=== PATIENT | male | born 1980 | race Two or more races ===

== ENCOUNTER 2023-06-27 01:26 | Emergency (ER) | payer OTHER ==
[~2023-06-27] VITALS: Ht 167.6 cm; Wt 65.8 kg
== END 2023-06-27 03:20 | disposition left against medical advice (07) ==
LOC: ER 01:26
DX: F14.20 Cocaine dependence, uncomplicated (principal); Z71.51 Drug abuse counseling and surveillance of drug abuser; T40.5X5A Adverse effect of cocaine, initial encounter; Y92.488 Other paved roadways as the place of occurrence of the external cause; G40.89 Other seizures